=== PATIENT | male | born 1975 | race African-American/Black ===

== ENCOUNTER 2019-03-09 23:16 | Emergency (ER) | payer OTHER ==
[~2019-03-09] VITALS: Ht 170.2 cm; Wt 119.0 kg
[2019-03-10] MEDS ORDERED: ACETAMINOPHEN 325MG TABLET PO ONE (01:45)
[2019-03-10 03:09] VITALS: BP 171/91
== END 2019-03-10 03:11 | disposition home or self-care (01) ==
LOC: ER 23:58
DX: S60.221A Contusion of right hand, initial encounter (principal); M25.511 Pain in right shoulder; Y04.2XXA Assault by strike against or bumped into by another person, initial encounter; Y93.89 Activity, other specified; Y92.89 Other specified places as the place of occurrence of the external cause; R03.0 Elevated blood-pressure reading, without diagnosis of hypertension
CPT/HCPCS: 73030; 73130; 99283; Z7610

== ENCOUNTER 2019-03-19 00:56 | Emergency (ER) | payer OTHER ==
[~2019-03-19] VITALS: Ht 170.2 cm; Wt 119.0 kg
[2019-03-19] MEDS ORDERED: HYDROCODONE/ACETAMINOPHEN 5/325MG TABLET PO ONE (04:15)
[2019-03-19 04:19] VITALS: BP 201/102
== END 2019-03-19 04:48 | disposition home or self-care (01) ==
LOC: ER 00:56
DX: M79.641 Pain in right hand (principal); S63.200A Unspecified subluxation of right index finger, initial encounter; Y04.0XXA Assault by unarmed brawl or fight, initial encounter; Y93.9 Activity, unspecified; Y92.9 Unspecified place or not applicable; R03.0 Elevated blood-pressure reading, without diagnosis of hypertension
CPT/HCPCS: 29125; 99283; A4565